=== PATIENT | male | born 1975 ===

== ENCOUNTER 2022-08-27 23:25 | Emergency (ER) | payer SELFPAY ==
[2022-08-28] MEDS ORDERED: Cephalexin 500 MG Cap PO ONE (00:24)
[2022-08-28 02:48] LABS: C. TRACHOMATIS BY PCR NOT DETECTED; N. GONORRHOEAE BY PCR NOT DETECTED
== END 2022-08-28 00:35 | disposition home or self-care (01) ==
LOC: MERGE 23:25 → MW.ED 23:25
DX: R30.0 Dysuria (principal); Z88.1 Allergy status to other antibiotic agents
CPT/HCPCS: 81001; 87086; 87491; 87591; 99283; A9270